=== PATIENT | male | born 1975 | race Two or more races ===

== ENCOUNTER → 2020-10-15 15:21 | Outpatient (CLI) | payer OTHER | END | disposition home or self-care (01) | LOC: PPH VACUNA 15:21 | DX: Z23 Encounter for immunization (principal) ==

== ENCOUNTER 2021-05-30 16:00 | Outpatient (CLI) | payer OTHER | END 2021-05-30 16:30 | disposition home or self-care (01) | LOC: PPH VACUNA 16:00 | PROVIDERS: ATTEND Emergency Medicine Pediatric Emergency Medicine | DX: Z23 Encounter for immunization (principal) ==